=== PATIENT | male | born 1980 | race Caucasian/White ===

== ENCOUNTER 2018-05-14 04:14 | Emergency (ER) | payer MEDICAID ==
[~2018-05-14] VITALS: Ht 180.3 cm; Wt 104.3 kg
[2018-05-14] MEDS ORDERED: ASPIRIN 325 MG TABLET PO ONE (04:30)
[2018-05-14] MEDS ORDERED: ASPIRIN 325 MG TABLET ONE (04:32)
[2018-05-14 04:44] LABS: BASOPHILS % (AUTO) 0.5 % (0.0-2.0); EOSINOPHILS % (AUTO) 0.2 % (0.0-7.0); HEMATOCRIT 48.2 % (36.7-47.1); HEMOGLOBIN 16.4 g/dL (12.5-16.3); LYMPHOCYTES # (AUTO) 1.5 K/uL (20.0-40.0); LYMPHOCYTES % (AUTO) 22.2 % (20.5-51.5); MEAN CORPUSCULAR HEMOGLOBIN 32.4 uug (23.8-33.4); MEAN CORPUSCULAR HGB CONC 34 g/dL (32.5-36.3); MEAN CORPUSCULAR VOLUME 95.1 fL (73.0-96.2); MONOCYTES # (AUTO) 0.5 K/uL (2.0-10.0); MONOCYTES % (AUTO) 7.6 % (0.0-11.0); NEUTROPHILS # (AUTO) 4.8 K/uL (1.8-8.9); NEUTROPHILS % (AUTO) 69.5 % (38.5-71.5); PLATELET COUNT (AUTO) 169 K/uL (152-348); RED BLOOD CELL COUNT(AUTO) 5.07 MIL/uL (4.06-5.63); WHITE BLOOD COUNT (AUTO) 6.9 K/uL (3.6-10.2)
--- NOTE | 2018-05-14 04:53 | NUR ---
Pt appears in no apparent distress. States has no chest pain at this time. Pt resting in bed. Pending lab & xray results.
[2018-05-14 05:11] LABS: CREATININE 0.8 mg/dL (0.6-1.3); POTASSIUM 3.5 mmol/L (3.5-5.1)
--- NOTE | 2018-05-14 05:30 | NUR ---
PAGED PATIENT'S PMD DR MOODY GERARD . DR LANGFORD IS THE VENEREAL DISEASE CONTROL HEAD MD WHO WILL CALL BACK
--- NOTE | 2018-05-14 05:39 | NUR ---
Dr. Brito speaking on telephone with Dr. Brothers (grinder and honer operator automatic MD for Dr. Ivan Franklin @ [facility]).
--- NOTE | 2018-05-14 05:56 | NUR ---
IV removed. Catheter intact and site benign. Pressure and 4x4 gauze applied to site. No bleeding noted.
--- NOTE | 2018-05-14 05:59 | NUR ---
Patient discharged to home in stable conditon. Written and verbal after care instructions given. Patient verbalizes understanding of instructions. Pt ambulated out of ER in stable gait. All belongings w pt. Pt has no s/s at this time. Pt understands to follow up w PMD.
[2018-05-14 06:00] VITALS: BP 154/84
== END 2018-05-14 06:11 | disposition home or self-care (01) ==
LOC: ER 04:16
DX: R07.89 Other chest pain (principal); I10 Essential (primary) hypertension; E78.5 Hyperlipidemia, unspecified; I25.10 Atherosclerotic heart disease of native coronary artery without angina pectoris
CPT/HCPCS: 36415; 70030-TC; 71045; 85025; 93005; A4663